=== PATIENT | male | born 1950 | race Caucasian/White ===

== ENCOUNTER 2016-09-12 11:48 | Day surgery (SDC) | payer OTHER ==
[~2016-09-12] VITALS: Ht 167.6 cm; Wt 95.7 kg
[~2016-09-12 11:48] MED LIST: BENADRYL25 MG PO; FLONASE16 G1 BOTH NARES; PROAIR RESPICL90 MCG IH; SYMBICORT60 INHALAT IH
[2016-09-12 12:12] VITALS: BP 137/81
[2016-09-12] MEDS ORDERED: COLACE100 MG PO (16:00)
[2016-09-12] MEDS ORDERED: PERCOCET 5/31 TABLET PO (16:00)
[2016-09-12 16:55] VITALS: BP 136/82
[2016-09-12 17:22] VITALS: BP 136/80
== END 2016-09-12 17:37 | disposition home or self-care (01) ==
LOC: SDC 11:48
PROC: 0YUA4JZ Supplement Bilateral Inguinal Region with Synthetic Substitute, Percutaneous Endoscopic Approach (ICD-10-PCS; principal; 2016-09-12)
DX: K40.20 Bilateral inguinal hernia, without obstruction or gangrene, not specified as recurrent (principal); K42.9 Umbilical hernia without obstruction or gangrene; J45.909 Unspecified asthma, uncomplicated; Z80.0 Family history of malignant neoplasm of digestive organs; Z68.34 Body mass index [BMI] 34.0-34.9, adult
CPT/HCPCS: C1727; C1781; J0690; J1100; J1170; J1885; J2250; J2405; J3010